=== PATIENT | female | born 1995 | race Caucasian/White ===

== ENCOUNTER 2022-06-30 07:41 | Emergency (ER) | payer OTHER ==
[2022-06-30 07:55] VITALS: BP 118/66; PULSE 72; RESP 20; TEMP 99; BMI 24.5
[2022-06-30 08:38] LABS: HCG,QUALITATIVE URINE Positive
[2022-06-30 09:10] LABS: HEMOGLOBIN 12.3 G/dL (10.7-15.3); MCH 29.5 pg (25.7-33.7); MCHC 32.4 g/dl (32.0-36.0); MEAN CELL VOLUME 90.8 fl (80-96); PLATELET COUNT 290.4 10^3/uL (134-434); RBC 4.18 10^6/uL (3.60-5.2); RDW 14.1 % (11.6-15.6)
[2022-06-30 09:16] LABS: ALBUMIN 3.9 g/dl (3.4-5.0); BILIRUBIN,TOTAL 0.5 mg/dl (0.2-1); CALCIUM 9.1 mg/dl (8.5-10); CREATININE 0.5 mg/dl (0.55-1.3); POTASSIUM 3.9 mmol/L (3.5-5.1); TOT PROT 6.8 g/dl (6.4-8.2)
== END 2022-06-30 12:08 | disposition home or self-care (01) ==
LOC: FER 07:41
DX: O46.8X1 Other antepartum hemorrhage, first trimester (principal); O41.8X10 Other specified disorders of amniotic fluid and membranes, first trimester, not applicable or unspecified; O21.9 Vomiting of pregnancy, unspecified; O26.891 Other specified pregnancy related conditions, first trimester; R10.9 Unspecified abdominal pain; Z3A.01 Less than 8 weeks gestation of pregnancy
CPT/HCPCS: 36415; 76817-TC; 80053; 81003; 84702; 84703; 85027; 86850; 86900; 86901; 87081; 87086; 87491; 87591; 87661; 99284-25